=== PATIENT | male | born 1970 | race African-American/Black ===

== ENCOUNTER 2020-12-28 09:36 | Emergency (ER) | payer MEDICAID ==
[~2020-12-28] VITALS: Ht 182.9 cm; Wt 85.0 kg
[2020-12-28 10:50] LABS: BASOPHILS % 0.6 % (0.0-2.0); EOSINOPHILS % 1.1 % (0.0-5.0); HEMATOCRIT. 36.8 % (42.0-52.0); HEMOGLOBIN. 12.4 g/dL (14.0-18.0); LYMPHOCYTES % 33.4 % (20.0-50.0); MEAN CORPUSCULAR HEMOGLOBIN 27.5 pg (28.0-32.0); MEAN CORPUSCULAR VOLUME 81.9 fL (80.0-94.0); MEAN PLATELET VOLUME 6.8 fl (7.4-10.4); MONOCYTES % 6.2 % (2.0-8.0); NEUTROPHILS % 58.7 % (40.0-76.0); PLATELET 285 x1000/uL (130-400); RED BLOOD CELL COUNT 4.49 mill/uL (4.7-6.1); RED CELL DISTRIBUTION WIDTH 12.6 % (11.6-14.6)
[2020-12-28 10:56] LABS: CHLORIDE 112 mEq/L (98-107)
[2020-12-28 11:06] LABS: ETHANOL BLOOD < 10 mg/dL
[2020-12-28 11:57] LABS: CLARITY URINE CLEAR (CLEAR); COLOR URINE YELLOW (YELLOW); KETONES URINE TRACE (NEGATIVE); LEUKOCYTE ESTERASE URINE NEGATIVE (NEGATIVE); NITRITE URINE NEGATIVE (NEGATIVE); OCCULT BLOOD URINE NEGATIVE (NEGATIVE); PH URINE 6.5 (4.5-8.0); PROTEIN URINE 1+ (NEGATIVE); SPECIFIC GRAVITY URINE 1.034 (1.005-1.030)
[2020-12-28 12:30] LABS: METHADONE URINE SCREEN NEGATIVE (NEGATIVE); OPIATES URINE SCREEN NEGATIVE (NEGATIVE); PHENCYCLIDINE URINE SCREEN NEGATIVE (NEGATIVE)
[2020-12-28 12:31] LABS: *BARBITURATES SCREEN URINE NEGATIVE (NEGATIVE); *BENZODIAZEPINES SCREEN URINE NEGATIVE (NEGATIVE); *COCAINE SCREEN URINE NEGATIVE (NEGATIVE); CANNABINOID URINE SCREEN PRESUMTIVE POSITIVE (NEGATIVE)
[2020-12-28 12:33] LABS: *AMPHETAMINES SCREEN URINE PRESUMTIVE POSITIVE (NEGATIVE)
[2020-12-28] MEDS ORDERED: DIPHENHYDRAMINE 50MG CAPSULE PO STA (13:56)
[2020-12-28] MEDS ORDERED: MIRT45TA83 PO (13:57)
[2020-12-28] MEDS ORDERED: DIPH50CA4 MT (13:57)
[2020-12-28] MEDS ORDERED: OLAN15TA3 MT (13:57)
[2020-12-28] MEDS ORDERED: OLANZAPINE 10MG TABLET PO SCH (14:00)
[2020-12-29] MEDS: OLANZAPINE 5MG TABLET ODT PO SCH ×2 (09:00→18:40)
[2020-12-29] MEDS: LORAZEPAM 1MG TABLET PO PRN (11:21)
[2020-12-29] MEDS ORDERED: TEMAZEPAM 15MG CAPSULE PO PRN (21:00)
[2020-12-30] MEDS: OLANZAPINE 5MG TABLET ODT PO SCH ×2 (10:09→17:13)
[2020-12-30] MEDS: LORAZEPAM 1MG TABLET PO PRN ×3 (11:17→23:31)
[2020-12-30] MEDS ORDERED: LORAZEPAM 2MG/ML CPJ IM ONE (19:15)
[2020-12-30] MEDS ORDERED: OLANZAPINE 10 MG/VIAL IM ONE (19:15)
[2020-12-31] MEDS: OLANZAPINE 5MG TABLET ODT PO SCH ×2 (05:30→17:51)
[2020-12-31] MEDS: LORAZEPAM 1MG TABLET PO PRN (05:54)
[2020-12-31] MEDS ORDERED: LORAZEPAM 2MG/ML CPJ IM STA (11:06)
[2020-12-31] MEDS ORDERED: OLANZAPINE 10 MG/VIAL IM ONE (11:15)
[2021-01-01] MEDS: OLANZAPINE 5MG TABLET ODT PO SCH (09:17)
[2021-01-01 11:18] VITALS: BP 116/67
== END 2021-01-01 19:08 ==
LOC: ER 09:52
DX: F15.10 Other stimulant abuse, uncomplicated (principal); F20.9 Schizophrenia, unspecified; R45.851 Suicidal ideations; F31.9 Bipolar disorder, unspecified; F16.10 Hallucinogen abuse, uncomplicated; F12.10 Cannabis abuse, uncomplicated; Z75.1 Person awaiting admission to adequate facility elsewhere
CPT/HCPCS: 36415; 80053; 80305; 80320; 81003; 82962; 85025; 99285; Q0163; G0480